=== PATIENT | male | born 1990 | race Caucasian/White ===

== ENCOUNTER 2021-11-16 08:54 | Day surgery (SDC) | payer OTHER ==
[2021-11-16] MEDS ORDERED: Ringers Lactate 1,000 ML IV ONE (09:13)
[2021-11-16 09:22] LABS: ALT/SGPT 113 U/L (12-78); AST/SGOT 54 U/L (15-37); Albumin 3.8 g/dL (3.4-5.0); Alkaline Phosphatase 76 U/L (45-117); Amylase 65 U/L (25-115); BUN Blood Urea Nitrogen 14 mg/dL (7-18); Bicarbonate 25 mmol/L (21-32); Bilirubin Direct < 0.1 mg/dL (0-0.2); Bilirubin Total 0.3 mg/dL (0.2-1.0); Glucose Level 107 mg/dL (74-106); Lipase 177 U/L (73-393); Potassium 4.4 mmol/L (3.5-5.1); Protein, Total 6.9 g/dL (6.4-8.2); Sodium Level 140 mmol/L (136-145)
[2021-11-16 09:31] LABS: Absolute Lymphocytes (CBC) 1.9 K/uL (0.7-4.9); MPV 8.8 fL (7.6-11.3); RBC Red Blood Cell Count 4.84 M/uL (4.33-5.43)
[2021-11-16] MEDS ORDERED: propofoL 200 MG/20 ML VIAL IV ONE (09:38)
[2021-11-16] MEDS ORDERED: ROCURONIUM 50 MG/5 ML VIAL IV ONE (09:39)
[2021-11-16] MEDS ORDERED: MIDAZOLAM HCL 2 MG/2 ML INJ ONE (09:39)
[2021-11-16] MEDS ORDERED: FENTANYL CITR 250 MCG/5 ML ONE (09:39)
[2021-11-16] MEDS ORDERED: GLYCOPYRROLATE 0.2 MG/ML SYR ONE (09:39)
[2021-11-16] MEDS ORDERED: CELECOXIB 100 MG CAPSULE ONE (09:59)
[2021-11-16] MEDS ORDERED: ACETAMINOPHEN 500 MG TAB ONE (09:59)
[2021-11-16] MEDS ORDERED: CEFOXITIN 1 GM in NA CHLORIDE 0.9% 50 ML IVPB ONE (10:00)
[2021-11-16] MEDS ORDERED: LIDOCAINE 1% MPF 5 ML VIAL ONE (11:17)
[2021-11-16] MEDS ORDERED: dexAMETHasone 10 MG/ML VIAL ONE (11:29)
[2021-11-16] MEDS ORDERED: Mastisol Adhesive Liq ONE (12:22)
--- NOTE | 2021-11-16 12:25 | P.BOP ---
Preoperative diagnosis: acute cholecystitis, biliary dyskinesia, RUQ abd pain Postoperative diagnosis: same plus umbilical hernia Primary procedure: Laparoscopic cholecystectomy Secondary procedure: Open repair of umbilical hernia Estimated blood loss: <10cc Specimen: GB, hernia sac Findings: see dicta Anesthesia: General Complications: None
[2021-11-16 13:02] VITALS: BP 133/87; TEMP 97; O2SAT 95
--- NOTE | 2021-11-17 00:25 | OP ---
Date of Procedure: 11/16/2021 Surgeon: Asif Pabon MD Preoperative Diagnosis: Acute cholecystitis, biliary dyskinesia, right upper quadrant abdominal pain . Postoperative Diagnosis: Acute cholecystitis, biliary dyskinesia, right upper quadrant abdominal renetta n; umbilical hernia. Procedure: Laparoscopic cholecystectomy, open repair of umbilical hernia. Specimen: Gallbladder, hernia sac. Anesthesia: General plus local. Findings: Inflamed gallbladder and also umbilical hernia with a small amount of omentum. Indication: This is a case of a 31-year-old patient, who comes to us with right upper quadrant abdom inal pain, biliary dyskinesia. The patient understands the options, he wants to use the option of la paroscopic possible open cholecystectomy, which benefits, alternatives, and risks including, but not limited to infection, bleeding, damage to adjacent structures, anesthetic complication, chronic pain, chronic numbness, OR and even . He also understands this may not relieve any of his symptoms. He might need more than one surgical intervention. He understood and signed the consent. Description Of Procedure: The patient was brought to the operating room, placed in supine position, anesthesia was done without complication. Abdominal area was prepped and draped in a sterile fashion . Marcaine 0.5% was injected for local anesthetic, followed by sharp incision of the skin in the inf raumbilical region. Immediately, we noticed the patient to have an umbilical hernia. So, we had to direct our attention to that area, removed the hernia sac, clean the fascial edges extending the inci malachi to be able to accommodate the Donna trocars. We placed Vicryl #1 inside of the fascia. Donna trocar was carefully introduced. Pneumoperitoneum was obtained. I placed 3 more trocars, 5 mm each one of them 1 epigastric area 2 in the right upper quadrant. In the right upper quadrant using same technique, which consisted of local anesthetic, sharp incision of the skin, and introduction of the trocars under direct vision. This allowed me to put a grasper in the fundus of the gallbladder, anot her grasper in the infundibulum, retracting the gallbladder in the inferolateral fashion, exposing th e triangle of Calot and obtaining critical view. Cystic duct and cystic artery were clearly isolated , freed circumferentially, and the area was clipped with 3 clips proximally and 1 clip distal, ligati on in middle. Same was done with the cystic artery. Common bile duct and hepatic arteries were prot ected at all times. The gallbladder was removed from the liver using Bovie cauterizer, and removed f rom the abdominal cavity using EndoCatch through the umbilical incision. The area was inspected once again. No bile leak. No bleeding. Clips were intact. At that moment, I proceeded to remove the t rocars under direct vision. Deflated pneumoperitoneum. Closed the fascia and the umbilical hernia w ith #1 Vicryl, irrigated, subcutaneous tissue closed with 3-0 chromic and the skin in a subcuticular fashion with 3-0 chromic and Steri-Strips on top. Sponge count and instrument counts correct. The p atient tolerated the procedure well. The patient was sent to Recovery in stable condition. Disposition: Home. Activity: As tolerated. No heavy lifting. Follow up in my office in 1 week, call for appointment [phone]. Keep area dry for 48 hours, then may shower. Keep Steri-Strips intact. Medication: See orders. TACO/MARIA GUADALUPE Voice ID: [id number] Report ID: [id number]
== END 2021-11-16 13:24 | disposition home or self-care (01) ==
LOC: OR 08:54
PROVIDERS: ATTEND Surgery
PROC: 0WQF0ZZ Repair Abdominal Wall, Open Approach (ICD-10-PCS; 2021-11-16)
PROC: 0FT44ZZ Resection of Gallbladder, Percutaneous Endoscopic Approach (ICD-10-PCS; principal; 2021-11-16 11:30)
DX: K81.1 Chronic cholecystitis (principal); K82.8 Other specified diseases of gallbladder; K42.9 Umbilical hernia without obstruction or gangrene; R10.11 Right upper quadrant pain
CPT/HCPCS: 85025; 80048; 36415; 82150; 80076; 88302; 88304; 83690; 47562; 49585; J2704; J2250; J3010; J1100; J7120; J0694